=== PATIENT | male | born 1975 | race Caucasian/White ===

== ENCOUNTER → 2016-12-25 | Day surgery (SDC) | payer BC, OTHER ==
[2016-12-20 10:13] VITALS: Ht 175.3 cm; Wt 81.8 kg
[~2016-12-25] VITALS: Ht 175.3 cm; Wt 81.8 kg
[~2016-12-25] MED LIST: ASPEC325 PO; ATROPINE SULFATE 0.1 MG/ML 5ML SYR IV PRN; CEFAZOLIN 2000 MG/60 ML D5W IV SCH; DEXAMETHASONE SOD INJ 4 MG/ML VIAL ONE; EpHEDrine SULFATE INJ 50 MG/ML AMP IV PRN; EpINEphrine INJ 1MG/ML AMP 1 MG/ML AMP ONE; FENTANYL CITRATE INJ 50 MCG/1 ML 2 ML VIAL IV PRN; FENTANYL CITRATE INJ 50 MCG/1 ML 2 ML VIAL ONE; KETO10TA PO; KETOROLAC TROMETHAMINE 30 MG/ML VIAL ONE; LACTATED RINGER'S 1000ML 1,000 ML IV SCH; LIDOCAINE HCL 2% 2 ML VIAL (20MG/ML) ONE; MIDAZOLAM HCL 1 MG/ML 2ML VIAL ONE; ONDANSETRON INJ 2 MG/ML 2 ML VIAL ONE; OXYC-57 PO; OXYCODONE/ACETAMINOPHEN 5-325 TAB PO PRN; PROPOFOL IV EMULSION 10 MG/ML 20 ML VIAL IV ONE; ROPIVACAINE 0.5% 5 MG/ML 30 ML VIAL ONE; SODIUM CHLORIDE 0.9% 1000ML 1,000 ML IV SCH
--- NOTE | 2016-12-25 06:56 | History & Physical Bridge - [place] ---
H&P Re-Evaluation Bridge Note: I have examined the patient, reviewed the History & Physical and in the interval since the performance of the History & Physical I have noted the following changes of clinical significance: No changes noted
--- NOTE | 2016-12-25 07:48 | [facility] Post Operative Brief Note ---
Immediate Operative Summary Operative Date Dec 25, 2016. Pre-Operative Diagnosis Left Knee Acute Medial Meniscal Tear Post-Operative Diagnosis Same + Trochlea DJD Procedure(s) Performed Left Knee Arthroscopy, Partial Medial Meniscectomy, Chondroplasty Surgeon Dr. Cool Bulb Tester Surgeon(s) Zayda Garcia PA-C Estimated Blood Loss Minimal Findings Medial Meniscus Tear + Trochlea DJD Specimens None Anesthesia General Complication(s) None Disposition Recovery Room / PACU
--- NOTE | 2016-12-25 07:50 | Discharge Instructions-SurgCtr ---
Discharge Instructions Visit Reason for Visit: Left Knee Acute Medial Meniscal Tear Discharge Discharge Diagnosis / Problem: left knee medial meniscus tear Discharge Goals Goal(s): Decrease discomfort, Improve function, Therapeutic intervention Activity Recommendations Activity Limitations: per Instructions/Follow-up section Weightbearing Status: Left weightbearing (as tolerated) Anesthesia . Post Anesthesia Instructions: If you have had General Anesthesia or IV Sedation: * Do not drive today. * Resume driving when surgeon permits. * Do not make important decisions or sign legal documents today. * Call surgeon for: 1. Temperature elevations greater than 101 degrees F. 2. Uncontrollable pain. 3. Excessive bleeding. 4. Persistent nausea and vomiting. 5. Medication intolerance (nausea, vomiting or rash). * For nausea and vomiting use only clear liquids such as: tea, soda, bouillon until nausea subsides, then gradually increase diet as tolerated. * If you have any concerns or questions, call your surgeon's office. If physician is unavailable and it is an emergency, call 911 or go to the nearest emergency room. . Instructions / Follow-Up Instructions / Follow-Up MEDICATIONS: * Resume previous medications unless instructed otherwise by your surgeon. * Always take pain medication on a full stomach or with food to avoid upset stomach. * Do not drink alcohol or drive while taking narcotics. * Ibuprofen or Tylenol may be taken if narcotic not needed. No ibuprofen while taking toradol SPECIAL CARE INSTRUCTIONS: __ None _x_ Keep extremity elevated and iced x 48 hours; apply ice 20-30 minutes 8-10 times/day. May remove at night. __ Crutches __ May discard when able __ Brace/Post-op shoe __ 24 hrs/day __ Remove at night _x_ Dressing __ Maintain until seen in office, may shower with plastic over site _x_ Remove dressings in 24-48 hours and then may shower x__ Cover incisions with band-aids after showering __ Do not remove steri-strips Call physician if chills or temperature rises above 102 degrees or pain unrelieved by prescribed pain medications. Office [phone] follow up in 2 weeks Diet Recommendations Home Diet: resume previous diet Procedures Procedures Performed: Left Knee Arthroscopy, Partial Medial Meniscectomy, Chondroplasty Pending Studies Studies pending at discharge: no Medical Emergencies . Who to Call and When: Medical Emergencies: If at any time you feel your situation is an emergency, please call 911 immediately. . Non-Emergent Contact Non-Emergency issues call your: Primary Care Provider, Surgeon . . "Provider Documentation" section prepared by Diego Garcia.
--- NOTE | 2016-12-25 08:11 | Anesthesia Progress Nt - [facility] ---
Anesthesia Post Op Note Date & Time Dec 25, 2016 at 08:11 Vital Signs Pain Intensity: 0 Vital Signs Past 12 Hours Date Time Temp Pulse Resp B/P Pulse Ox O2 Delivery O2 Flow Rate FiO2 12/25/16 08:05 70 17 12/25/16 08:05 70 17 95 12/25/16 08:05 36.6 73 17 122/80 95 Room Air 12/25/16 08:03 122/80 12/25/16 08:00 73 18 95 12/25/16 08:00 73 18 12/25/16 07:58 116/79 12/25/16 07:55 74 12 98 12/25/16 07:55 74 12 12/25/16 07:53 120/79 12/25/16 07:50 81 12 12/25/16 07:50 81 12 98 12/25/16 07:48 124/80 12/25/16 07:45 83 9 99 12/25/16 07:45 83 9 12/25/16 07:45 36.5 94 16 133/84 97 Mask 6 12/25/16 06:21 36.8 63 18 123/80 98 Room Air Notes Mental Status: alert / awake / arousable, participated in evaluation Pt Amnestic to Procedure: Yes Nausea / Vomiting: adequately controlled Pain: adequately controlled Airway Patency, RR, SpO2: stable & adequate BP & HR: stable & adequate Hydration State: stable & adequate Anesthetic Complications: no major complications apparent
[2016-12-25 08:16] VITALS: TEMP 36.4
[2016-12-25 08:35] VITALS: BP 118/78; PULSE 74; O2SAT 99
--- NOTE | 2016-12-25 08:38 | OPERATIVE REPORT ---
DATE OF OPERATION: 12/25/2016 SURGEON: Kenny Cool MD CRIME SCENE ANALYST: WHIT Hope PREOPERATIVE DIAGNOSIS: Left knee degenerative medial meniscus tear. POSTOPERATIVE DIAGNOSES: 1. Left knee degenerative medial meniscus tear. 2. 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 PROCEDURES PERFORMED: 1. Left knee exam under anesthesia. 2. Left knee diagnostic arthroscopy. 3. Left knee partial medial meniscectomy. 4. Left knee chondroplasty of the trochlea. COMPLICATIONS: None. ESTIMATED BLOOD LOSS: Minimal. TOURNIQUET TIME: 24 minutes at 300 mmHg. ANESTHESIA: General. OPERATIVE INDICATIONS: The patient is a 41-year-old gentleman who injured his knee about 6 months ago in a work related injury. He was found to have a mild stretch injury to his ACL and MCL and the medial meniscus tear. He was treated conservatively and seemed to be doing better for a while, but then started having more and more mechanical symptoms as the time gone on. No instability. His knee felt stable on exam. The patient indicated for knee arthroscopy, partial meniscectomy and for meniscal pathology. OPERATIVE FINDINGS: Examination under anesthesia of the left knee revealed no real significant effusion. His range of motion was full in extension to 135 degrees of flexion. He had no instability. Good endpoint to his Ann. No pivot. No varus or valgus instability. Kris was negative for mechanical symptoms. ARTHROSCOPIC FINDINGS: Arthroscopic findings revealed no real significant knee effusion. The undersurface of patella was well preserved. The trochlea showed a focal area of grade 4 change, measuring about 1 cm x 1 cm with some loose cartilage on the edges. In the intercondylar notch, the ACL and PCL were intact. In the medial compartment, there was a complex degenerative tear of posterior horn of the medial meniscus. The articular surface was well preserved. In the lateral compartment, there were some age-related changes to the cartilage. The meniscus was intact. Just a very little fraying of the posterior horn of the meniscus at the root. OPERATIVE PROCEDURE: The patient was taken to the operating room, identified and placed on the operating table in the supine position. All contact areas were appropriately padded. IV antibiotics were provided by the anesthesia team. A general anesthetic was implemented by anesthesia team. Left thigh tourniquet was then placed. The left knee was then examined under anesthesia with findings as described above. Left leg was then prepped and draped in the usual sterile fashion. The left leg was elevated and exsanguinated with Esmarch and tourniquet was placed at 300 mmHg. Routine left knee arthroscopy was then performed through typical anteromedial and anterolateral portals. Superior outflow portal was established for outflow. I did resect a little bit of the fat pad in order to see adequately. I then addressed the medial meniscus. With the use of motorized and hand control instruments, a partial medial meniscectomy was then performed. I resected this degenerative flap tear as well as the anterior and posterior components of this tear as well as resected some of the horizontal component back to stable tissue. Once this was completed, attention was then drawn trochlea. There was a focal area of the disease of the trochlea. I took a duckbill punch and debrided the loose cartilage flaps. I then used the shaver to smooth these off. Once this was complete, the arthroscopic instruments were placed throughout the knee joint. All extraneous debris was removed. I did use the shaver just to debride some of the very little fraying of the posterior horn of the lateral meniscus. The arthroscopic instruments were then removed from the joint. The portals were closed with 3-0 Prolene suture in a simple fashion. The knee was injected with 30 mL of 0.5% ropivacaine with epinephrine and 30 mg of Toradol. A sterile dressing with Xeroform, 4 x 4, sterile cast padding and Jonathan bandage were applied. The tourniquet was then let down for a tourniquet time of 24 minutes. The patient then brought out of general anesthesia and transferred to the recovery room in stable condition. The patient tolerated the procedure well with no complications. All needle and sponge counts were correct at the end of the operation. I attest to the content of the Intraoperative Record and any orders documented therein. Any exceptions are noted below. THIAGO
--- NOTE | 2016-12-26 13:14 | EDITING REQUIRED CODING QUERY ---
CQMENISCUS TEAR To promote full compliance with coding requirements relating to patient care physician participation is requested in all cases of computer language coder uncertainty. Please assist us with the question(s) below: Please specify the type of Meniscus Tear by placing an "X" within the parenthesis (). If other please document type. (x) Current Injury DOS 12/25/16 ON OR IT TALKS ABOUT DEGENERATIVE TEAR BUT ALSO () Old Injury MENTIONS INJURY AT WORK WAS IT WORK INJURY OR DEGENERATION THANKS (x) Other: (Please Specify) Yes, this is an acute injury sustained at work. Thank you Orin Cardoso
== END | disposition home or self-care (01) ==
LOC: X.SURG 06:06
PROVIDERS: ATTEND Orthopaedic Surgery Sports Medicine
DX: S83.242A Other tear of medial meniscus, current injury, left knee, initial encounter (principal); M25.562 Pain in left knee; M17.12 Unilateral primary osteoarthritis, left knee; X58.XXXA Exposure to other specified factors, initial encounter; Y92.89 Other specified places as the place of occurrence of the external cause; Y99.0 Civilian activity done for income or pay

== ENCOUNTER 2019-10-11 02:30 | Observation (INO) ==
[2019-10-11] MEDS ORDERED: ONDANSETRON INJ 2 MG/ML 2 ML VIAL IV PRN ×2 (04:23→10:54)
[2019-10-11] MEDS ORDERED: MoRPHine SULFATE 4 MG/ML 1 ML CARP\\VIAL IV PRN (04:23)
[2019-10-11] MEDS ORDERED: MoRPHine SULFATE 2 MG/ML CARP IV PRN (04:23)
[2019-10-11] MEDS ORDERED: KETOROLAC TROMETHAMINE 15 MG/ML VIAL IV PRN (04:23)
[2019-10-11] MEDS: LACTATED RINGER'S 1,000 ML IV SCH ×3 (06:22→23:31)
[2019-10-11] MEDS: cefOXitin 2,000 MG in DEXTROSE 5% 50 ML IV SCH ×2 (06:22→11:39)
--- NOTE | 2019-10-11 09:12 | History & Physical Report ---
Date of Service October 11, 2019 Assessment & Plan (1) Acute appendicitis: 43 year-old male with 48 hour history of abdominal pain nausea and vomiting who originally presented to [facility] Friday and diagnosed with possbile gastroenteritis was a direct transfer for acute appe ndicitis with dilated appendix at 1.3 cm with periappendiceal inflammation and stranding. Leukocytosis of 13K. Abdominal examination currently benign with no pain. Afebrile, VSS. Plan: Laparoscopic appendectomy possible open. Informed patient of procedure, risks, and recovery time. Patient understood possibility of open procedure given CT scan findings and time span of his symptoms. Continue IV Cefoxitin Continue NPO, IV morphine prn pain, IV Zofran prn nausea Continue SCDS Discussed patient with Dr. Jack webb is to evaluate patient and obtain consent prior to OR. History of Present Illness Chief Complaint: Abdominal pain, nausea, and vomiting Primary Care Provider: Orlando Medeiros is a 43 year-old male who originally presented to [place] emergency department Friday evening into Friday with complaint of severe generalized abdominal pain with nausea and vomiting. States he was given IV fluids, pain medication, and nausea medication and sent home. No imaging was done. He was told he likely had a viral infection. States the abdominal pain increased in severity and located more in the right lower abdomen throughout Friday and Friday and presented back to the emergency department concerned for possible appendicitis. States any movement would increase the pain. Never had any similar abdominal pain. No prior abdominal surgeries. CT scan of abdomen and pelvis with IV contrast last evening showed appendix dilated at 1.3 cm with moderate periappendiceal inflammatory changes including soft tissue stranding. He had leukocytosis of 14.8k Friday morning and 13.4k Friday evening. Waldemar states he is no longer having any abdominal pain. Has not had any pain medication since last evening around 9 pm. No nausea or vomiting. Allergies Allergy/AdvReac Type Severity Reaction Status Date / Time No Known Allergies Allergy Unverified 12/25/16 06:21 Home Medications Home Medications Medication Instructions Recorded Confirmed Type Aspirin 325 mg PO BID 30 Days #0 12/25/16 Rx Past Med/Surg History Surgical History (Updated 10/11/19 @ 09:14 by Kanchan Bob PA-C) History of esophagogastroduodenoscopy (EGD) History of meniscectomy of left knee Social History Communication Ability: Effective Beliefs That Will Affect Care: None Current Living Situation: Spouse Other Information That Helps Us Care for You: No Feels Safe at Home: Yes Safety Concerns: Feels Safe At This Time Smoking Status: Never smoker Do You Dip or Chew Tobacco: Yes ; Second Hand Exposure: No ; Tobacco Cessation Education Requested by Patient: No Hx Alcohol Use: Yes Alcohol type: beer Hx Substance Use: No Review of Systems Review of Systems: All systems reviewed & are unremarkable except as noted in HPI & below Physical Exam Constitutional: WD/WN, vitals as above + well hydrated and average body habitus; no acute distress and not ill appearing Respiratory: normal respiratory effort, lungs clear to auscultation Cardiovascular: RRR, no murmur, no edema Gastrointestinal (Abdomen): Inspection/Auscultation: abdomen normal to inspection; abdomen not distended Percussion/Palpation: abdomen soft and + hernia (small umbilical hernia); abdomen nontender, no guarding and abdomen not rigid Skin: no rashes, warm and dry Psychiatric: A+Ox3, euthymic affect Results & Data Vital Signs (Past 12 Hours) Vital Signs Temp Pulse Resp BP Pulse Ox 10/11/19 07:11 36.7 C 57 L 18 105/64 97 10/11/19 04:00 36.9 C 61 18 122/75 97 Laboratory Results WBC: 14.8k --> 13.4K (Friday evening) H&H 13.2/39.8 Platelets 170K Diagnostic Findings [facility] CT scan of abdomen and pelvis with IV Contrast report: "Within the right lower quadrant the appendix is dilated measuring up to 1.3 cm in diameter. There is moderate periappendiceal inflammatory changes, including soft tissue stranding. The findings are compatible with acute appendicitis. There is no bowel obstruction or significant ileus. There is a small amount of free pelvic fluid. Impression: Acute appendicitis. Periappendiceal inflammatory changes noted and a focal appendiceal perforation is not excluded on this imaging" Code Status & VTE Plan VTE Prophylaxis Plan VTE Prophylaxis will be ordered: Yes Supervising Physician Co-Signing Physician Notes I interviewed and examined this patient I agree with the above note. This is a 43-year-old male who has now had pain with nausea and vomiting for the last 2.[address] scan demonstrated acute appendicitis. He has tenderness in the right lower quadrant. We are planning for laparoscopic appendectomy. I have explained to him the laparoscopic procedure and the possible need to convert to an open procedure. I explained possible complications associated with these procedures. I answered his questions. He has signed a consent form.
--- NOTE | 2019-10-11 10:24 | Anesthesiology Consultation ---
Date of Service October 11, 2019 Assessment & Plan (1) Encounter for pre-operative examination: Chart Review Chart Review: Acceptable Risk for Surgery History Surgery Operation Date: 10/11/19 12:50 Proposed Procedures p Laparoscopic Appendectomy - Gordon Santiago MD Height/Weight Height: 5 ft 10 in Weight: 80.2 kg Allergies Allergy/AdvReac Type Severity Reaction Status Date / Time No Known Allergies Allergy Unverified 12/25/16 06:21 Medications Home Medications Medication Instructions Recorded Confirmed Last Taken Aspirin 325 mg PO BID 30 Days #0 12/25/16 Unknown Active Medications Generic Name Dose Route Start Last Admin Trade Name Freq PRN Reason Stop Dose Admin Lactated Ringer's 1,000 mls @ 100 mls/hr 10/11/19 04:30 10/11/19 07:04 Lr IV 11/10/19 04:29 100 mls/hr .Q10H [facility] Infusion Cefoxitin Sodium 2,000 mg/ 60 mls @ 100 mls/hr 10/11/19 06:00 10/11/19 07:03 Dextrose IV 10/21/19 05:59 Infused Q6H [facility] Infusion NPO Date Last Intake of Fluids: 10/10/19 Time Last Intake of Fluids: 18:00 Date Last Intake of Solids: 10/10/19 Time Last Intake of Solids: 18:00 Past Medical History Medical History (Updated 10/11/19 @ 10:26 by Jarrell Zacarias MD) No significant medical problems Past Surgical History Surgical History History of esophagogastroduodenoscopy (EGD) History of meniscectomy of left knee Social History Smoking Status: Never smoker Do You Dip or Chew Tobacco: Yes Hx Alcohol Use: Yes Alcohol type: beer alcohol intake frequency: 0-2 drinks per day Hx Substance Use: No Physical Exam Vital Signs Last Vital Signs Temp 36.9 C 10/11/19 09:57 Pulse 58 L 10/11/19 09:57 Resp 18 10/11/19 09:57 BP 113/69 10/11/19 09:57 Pulse Ox 96 10/11/19 09:57
[2019-10-11] MEDS ORDERED: LIDOCAINE HCL 2% 2 ML VIAL/AMP(20MG/ML) INFIL ONE (10:44)
[2019-10-11] MEDS ORDERED: DEXAMETHASONE SOD INJ 4 MG/ML VIAL ONE (10:44)
[2019-10-11] MEDS ORDERED: ONDANSETRON INJ 2 MG/ML 2 ML VIAL ONE (10:44)
[2019-10-11] MEDS ORDERED: GLYCOPYRROLATE 0.2 MG/ML VIAL ONE (10:44)
[2019-10-11] MEDS ORDERED: PROPOFOL IV EMULSION 10 MG/ML 20 ML VIAL IV ONE ×2 (10:44→12:09)
[2019-10-11] MEDS ORDERED: NEOSTIGMINE METHYLSULFATE 5 MG/5 ML SYR ONE (10:44)
[2019-10-11] MEDS ORDERED: MIDAZOLAM HCL 1 MG/ML 2ML VIAL ONE (10:45)
[2019-10-11] MEDS ORDERED: fentaNYL citrate 100 MCG/2 ML VIAL ONE (10:45)
[2019-10-11] MEDS ORDERED: BUPIVACAINE 0.5 % 5 MG/1 ML MPF 30ML VIAL ONE (10:52)
[2019-10-11] MEDS ORDERED: CEFAZOLIN 250 MG/ML 1 GM VIAL ONE (10:52)
[2019-10-11] MEDS ORDERED: HEPARIN (PORCINE) 1000 UNIT/ML 10 ML (CATH LAB USE ONLY) ONE (10:52)
[2019-10-11] MEDS ORDERED: KETOROLAC 30 MG/ML VIAL IV PRN (10:54)
[2019-10-11] MEDS ORDERED: ATROPINE SULFATE 0.1 MG/ML 10ML SYR IV PRN (10:54)
[2019-10-11] MEDS ORDERED: HYDROmorphone INJ 1 MG/ML SYRINGE IV PRN (10:54)
[2019-10-11] MEDS ORDERED: ROCURONIUM BROMIDE 10 MG/ML 5 ML VIAL ONE (11:53)
[2019-10-11] MEDS ORDERED: ePHEDrine sulfate 50 MG/ML SYR ONE (12:47)
--- NOTE | 2019-10-11 12:59 | Post Operative Brief Note ---
Immediate Post Op Note v1 Date of Surgery October 11, 2019 Pre & Post Diagnosis Operation Date: 10/11/19 12:50 Pre-Op Diagnosis: Acute Appendicitis Post-Op Diagnosis: Acute Appendicitis I identified the patient and participated in the time-out.: Yes Procedure Operation Date: 10/11/19 12:50 Actual Procedures p Laparoscopic Appendectomy(Not Applicable) - Gordon Santiago MD Surgeon Gordon Santiago MD Model And Pattern Supervisor Kanchan Bob PA-C Estimated Blood Loss 10 Findings Consistent with Post-Op Diagnosis Specimens Appendix Anesthesia Type General Complications none
--- NOTE | 2019-10-11 13:55 | Anesthesiology Progress Note ---
Date of Service October 11, 2019 Anesthesia Post Procedure Vital Signs Vital Signs: Temp Pulse Pulse Resp BP Pulse Ox 10/11/19 13:45 37.2 C 58 L 24 125/74 96 10/11/19 13:35 68 18 133/75 96 10/11/19 13:25 65 16 135/80 100 10/11/19 13:15 63 21 132/76 100 10/11/19 13:09 37.0 C 79 20 131/73 100 10/11/19 09:57 36.9 C 58 L 18 113/69 96 10/11/19 07:11 36.7 C 57 L 18 105/64 97 10/11/19 04:00 36.9 C 61 18 122/75 97 Pain Intensity Abdomen: Pain Intensity: 2 Transfer of Care Handoff Completed per policy Notes Mental Status: alert / awake / arousable Patient Amnestic to Procedure: Yes Nausea / Vomiting: adequately controlled Pain: adequately controlled Airway Patency, RR, SpO2: stable & adequate BP & HR: stable & adequate Hydration State: stable & adequate Anesthetic Complications: no major complications apparent
[2019-10-11] MEDS: MoRPHine SULFATE 2 MG/ML CARP IV PRN ×2 (15:19→18:40)
--- NOTE | 2019-10-12 00:19 | Operative Report ---
DATE OF OPERATION: 10/11/2019 PREOPERATIVE DIAGNOSIS: Appendicitis. POSTOPERATIVE DIAGNOSIS: Appendicitis. PROCEDURE: Laparoscopic appendectomy. SURGEON: Gordon Santiago MD HUMAN RESOURCES SERVICES SPECIALIST: Kanchan Bob PA-C FINDINGS: The appendix in its distal four-fifths was dilated, firm and hyperemic. The base of the appendix was on the inflow posterior side of the cecum. The appendix then made U-turn and lie in the retroperitoneum up along the paraesophageal gutter with the tip of the appendix near the inferior edge of the right lobe of the liver. There was no evidence of perforation. There was no abscess. There was a small amount of fluid in the pelvis. The visible bowel appeared normal. The base of the appendix and the cecum at the base of the appendix were normal. TECHNIQUE: The patient was given a general anesthetic and the area was prepped and draped in the usual sterile fashion. Transverse incision was made below the umbilicus, carried down through the subcutaneous tissue to the fascia which was grasped with 2 Royce clamps and incised between. The peritoneum was identified, incised and the introducer was placed bluntly. The abdomen was then insufflated to a pressure of 15 mmHg with carbon dioxide. The lower midline introducer was placed under direct vision through small skin incision. I then placed the patient in an airplane left. The small bowel was then retracted over towards the left side of the abdomen. The cecum was identified. The cecum was at a level with the umbilicus. I then sized it. There was inflammatory change along the lateral aspect of the ascending colon, but I could not identify the appendix at that point. I then placed another 5 mm introducer in the left lower quadrant under direct vision. I then opened the line of Toldt and rolled the cecum medially. I then also continued that dissection superiorly along the right colon medially and was able then to identify the tip of the appendix. I was able to separate that away from the lateral wall and the posterior wall of the abdomen bluntly and elevate the tip of the appendix; however, there was additional peritoneum overlying the mid portion of the appendix that had to be divided. That was done using blunt and cautery dissection where appropriate. That then freed the lateral attachment of the appendix and I was able to elevate it. There was additional adhesion at the end of the appendix laterally and this was divided. That allowed me to elevate the entire appendix. The mesoappendix was then easily away from the base of the appendix which could now be identified. The mesoappendix was divided using the Endo-GIRMA stapler. I then elevated the appendix. There was additional mesoappendix attached to the appendix which was using blunt dissection. This was clipped and then divided. Once I elevated the appendix completely, then I was able to identify the base of the appendix and its attachment to the cecum. Then, we placed a left lower quadrant introducer with a 12 mm introducer. I had to extend the incision. The appendix was then amputated using the Endo-GIRMA stapler. The appendix was placed into an Endobag and brought out through the left lower quadrant introducer site. That introducer was replaced. There was a small amount of oozing from the base of the mesoappendix. This was controlled with cautery. I then irrigated the abdomen and inspected for additional bleeding. There was some blood present and there was a small amount of oozing from the omentum which was controlled. There was no additional source of bleeding identified. The irrigation was removed. The base of the appendix and the mesoappendix were again inspected and there was no bleeding. The gas was allowed to escape and the introducers were removed. The fascia of the umbilical and left lower quadrant introducer sites was closed with interrupted 0 Vicryl and the skin of all the incisions was closed with 4-0 Monocryl in either an interrupted or running subcuticular fashion. The skin was anesthetized with 0.5% Marcaine. The skin was cleansed, dried, benzoin placed, Steri-Strips applied. Estimated blood loss was 10 mL. Sponge, needle and instrument counts were correct prior to closure. The patient tolerated the surgical procedure without complication and was transferred to recovery. I attest to the content of the Intraoperative Record and any orders documented therein. Any exception s are noted below.
[2019-10-12] MEDS: MoRPHine SULFATE 2 MG/ML CARP IV PRN (06:26)
--- NOTE | 2019-10-12 08:29 | Surgery Progress Note ---
Date of Service October 12, 2019 Assessment & Plan (1) Acute appendicitis: Postoperative day #1, status post laparoscopic appendectomy Doing well Can discharge to home Discussed postoperative activity restrictions Follow-up in 2 weeks Present on Admission?: Yes Subjective Postoperative day #1, status post laparoscopic appendectomy Having very little discomfort Tolerated regular diet Has not passed flatus for bowel movement as yet Denies nausea Physical Exam Constitutional: no acute distress Gastrointestinal (Abdomen): Inspection/Auscultation: normal bowel sounds; abdomen not distended Percussion/Palpation: + abdomen tender (Minimal incisional) and abdomen soft Results & Data Vital Signs (Past 12 Hours) Vital Signs Temp Pulse Pulse Resp BP Pulse Ox 10/12/19 07:19 36.9 C 61 16 126/73 96 10/12/19 04:00 37.0 C 76 16 112/65 96 10/11/19 23:43 37.2 C 64 16 119/68 95
--- NOTE | 2019-10-12 08:31 | Anesthesiology Progress Note ---
Date of Service October 12, 2019 Anesthesia Post Procedure Vital Signs Vital Signs: Temp Pulse Pulse Resp BP Pulse Ox 10/12/19 07:19 36.9 C 61 16 126/73 96 10/12/19 04:00 37.0 C 76 16 112/65 96 10/11/19 23:43 37.2 C 64 16 119/68 95 10/11/19 19:33 36.8 C 87 16 122/54 L 94 10/11/19 17:00 36.6 C 67 16 116/65 95 10/11/19 16:00 36.9 C 72 16 117/68 95 10/11/19 15:00 36.9 C 67 16 131/75 95 10/11/19 14:25 89 19 137/87 96 10/11/19 14:00 36.8 C 60 19 136/76 97 10/11/19 13:45 37.2 C 58 L 24 125/74 96 10/11/19 13:35 68 18 133/75 96 10/11/19 13:25 65 16 135/80 100 10/11/19 13:15 63 21 132/76 100 10/11/19 13:09 37.0 C 79 20 131/73 100 10/11/19 09:57 36.9 C 58 L 18 113/69 96 Pain Intensity Abdomen: Pain Intensity: 2 Right Shoulder: Pain Intensity: 4 Notes Mental Status: alert / awake / arousable and participated in evaluation Patient Amnestic to Procedure: Yes Nausea / Vomiting: adequately controlled Pain: adequately controlled Airway Patency, RR, SpO2: stable & adequate BP & HR: stable & adequate Hydration State: stable & adequate Anesthetic Complications: no major complications apparent and Pt Satisfied with anesthetic care
--- NOTE | 2019-10-13 11:41 | Discharge Summary ---
Date of Service October 13, 2019 Admission HPI Per Admitting Provider Waldemar is a 43 year-old male who originally presented to [place] emergency department Friday evening into Friday morning with complaint of severe generalized abdominal pain with nausea and vomiting. States he was given IV fluids, pain medication, and nausea medication and sent home. No imaging was done. He was told he likely had a viral infection. States the abdominal pain increased in severity and located more in the right lower abdomen throughout Friday and Friday and presented back to the emergency department concerned for possible appendicitis. States any movement would increase the pain. Never had any similar abdominal pain. No prior abdominal surgeries. CT scan of abdomen and pelvis with IV contrast last evening showed appendix dilated at 1.3 cm with moderate periappendiceal inflammatory changes including soft tissue stranding. He had leukocytosis of 14.8k Friday morning and 13.4k Friday evening. Waldemar states he is no longer having any abdominal pain. Has not had any pain medication since last evening around 9 pm. No nausea or vomiting. Principal Diagnosis Acute appendicitis Discharge Data Allergies Allergy/AdvReac Type Severity Reaction Status Date / Time No Known Allergies Allergy Unverified 12/25/16 06:21 Procedures Performed Operation Date: 10/11/19 12:50 Actual Procedures p Laparoscopic Appendectomy(Not Applicable) - Gordon Santiago MD Hospital Course (1) Acute appendicitis: Patient was transferred from [facility] for acute appendicitis as there was no surgeon available. Patient was direct admit to medical/surgical floor by Dr. Coburn. Patient was evaluated in the morning around 8 am and was scheduled for laparoscopic appendectomy possible open with Dr. Santiago. Patient was taken to OR and found to have acute appendicitis with moderate inflammation and retrocecal appendix however no perforation or abscess. Patient tolerated procedure well and was transferred to recovery then back to medical/surgical floor for post op care. Diet was advance to regular diet. PO Percocet and IV morphine were continued for pain. Activity as tolerated, incentive spirometry, and SCDS. Postoperative day #1, vitals stable, afebrile, pain controlled, tolerated regular diet, urinating without difficulty. Patient was discharged home on POD # 1 in stable condition. Total Time Total Time Spent Total Time Spent (In Minutes): 20 Total Time Includes: Examination of the Patient, Discharge Planning and Medication Reconciliation Discharge Plan Discharge Items Patient Disposition: Home - Self-Care Reason For Visit: ACUTE APPY Discharge Diagnosis: Acute appendicitis Activity: Per Instructions section Non-emergency contact: Surgeon Call non-emergency contact if: you have any medication questions, your pain is not controlled, your pain is worsening, your pain is concerning for you, you have a fever, your temperature is above 101, your wound has increased redness, your wound has increased drainage and your wound pain has increased Follow-up/Referrals: Orlando Thomas, D.O. [Primary Care Provider] - Diet: Regular Addtl Attending Provider Instructions: Post-Surgical ~Discharge Instructions Activity Recommendations: - lifting limitation: (10 pounds for 2 weeks), - exercise/sex/sports limit: (nonstrenuous for 2 weeks), - driving or machine use limit: (none for 1 week), - Shower/bathe limit: (may shower beginning tonight) Diet: - Resume previous diet SPECIAL CARE INSTRUCTIONS: - May shower tonight. Let water run over area and pat dry. - Leave steri strips on for one week. If they fall off before that is okay - Call the surgeon's office with any questions or concerns - - (ex. temperature higher than 101 degrees F, excessive bleeding or pain). MEDICATIONS: - Resume previous medications unless instructed otherwise by your surgeon. - Can alternate extra strength Tylenol and Ibuprofen as needed for pain - Tylenol 650 mg every 6 hours as needed - Ibuprofen 600 mg every 6 hours as needed (take with food) FOLLOW UP VISIT: - If not already scheduled, please call the office to schedule a two week follow-up appointment. Office number Pending Studies at Discharge: Yes (appendix pathology, will be reviewed at follow-up visit) Stand-Alone Forms: [facility] Transportation, Smoking Cessation Medications and DC Order Prescriptions: Continued Aspirin 325 MG ENTERIC COATED TAB 325 mg PO BID 30 Days Qty: 0 RF: 0 Discharge Orders: Discharge Order (Routine); Ordered 10/12/19 Ordered By: Kanchan Bob Admission Data Admit Date/Time: 10/11/19 04:23 Attending Provider: Brigida Coburn Admit Provider: Brigida Coburn Primary Care Provider: Orlando Thomas Other Interventions: Discharge Summary Assessment (RN) Last Done: 10/12/19 09:39 DC Date/Time DO NOT enter until pt leaves facility: 10/12/19 09:56
== END 2019-10-12 09:56 | disposition home or self-care (01) ==
LOC: 3W 04:10 → INTOOBSV 04:10